=== PATIENT | male | born 1985 | race Hispanic/Latino ===

== ENCOUNTER 2017-01-27 03:10 | Emergency (ER) | payer OTHER ==
[2017-01-27 03:18] VITALS: BMI 20.3
[2017-01-27 03:23] VITALS: BP 113/60; PULSE 91; RESP 16; TEMP 99.1; O2SAT 97
--- NOTE | 2017-01-27 03:30 | ED PDOC ---
HPI: Psych/Substance Abuse Time Seen by Provider: 01/27/17 03:15 Chief Complaint (Provider): ETOH History Per: Patient Additional Complaint(s): 31 yo male, no PMH, presents to ED for evaluation of ETOH usage. Pt awake, alert and oriented x 3. Ambulated into ED room. offers no complaints. Past Medical History Reviewed: Nursing Documentation, Vital Signs Vital Signs: Last Vital Signs Temp 99.1 F 01/27/17 03:22 Pulse 91 H 01/27/17 03:22 Resp 16 01/27/17 03:22 BP 113/60 01/27/17 03:22 Pulse Ox 97 01/27/17 03:22 - Medical History PMH: No Chronic Diseases - Surgical History Surgical History: No Surg Hx - Family History Family History: States: No Known Family Hx - Living Arrangements Living Arrangements: With Family - Social History Current smoker - smoking cessation education provided: No Alcohol: None Drugs: Denies - Allergies Allergies/Adverse Reactions: Allergies Allergy/AdvReac Type Severity Reaction Status Date / Time No Known Allergies Allergy Verified 01/27/17 03:18 Review of Systems ROS Statement: Except As Marked, All Systems Reviewed And Found Negative Physical Exam - Reviewed Nursing Documentation Reviewed: Yes Vital Signs Reviewed: Yes - Physical Exam Appears: Positive for: Well, Non-toxic, No Acute Distress Head Exam: Positive for: ATRAUMATIC, NORMAL INSPECTION, NORMOCEPHALIC Skin: Positive for: Normal Color, Warm, DRY Eye Exam: Positive for: EOMI, Normal appearance, PERRL ENT: Positive for: Normal ENT Inspection Neck: Positive for: Normal, Painless ROM Cardiovascular/Chest: Positive for: Regular Rate, Rhythm Respiratory: Positive for: CNT, Normal Breath Sounds Gastrointestinal/Abdominal: Positive for: Normal Exam, Bowel Sounds, Soft Back: Positive for: Normal Inspection Extremity: Positive for: Normal ROM Neurologic/Psych: Positive for: Alert, Oriented - ECG O2 Sat by Pulse Oximetry: 97 Medical Decision Making Medical Decision Making: Clinically sober. Stable for discharge Disposition - Clinical Impression Clinical Impression: Alcohol intoxication - Patient ED Disposition Is Patient to be Admitted: No - Disposition Disposition: Routine/Home Disposition Time: 03:31 Condition: STABLE Instructions: Alcohol Intoxication (ED) - POA Present On Arrival: None
== END 2017-01-27 06:00 | disposition home or self-care (01) ==
LOC: H.ER 03:10
DX: F10.129 Alcohol abuse with intoxication, unspecified (principal)